=== PATIENT | female | born 1960 | race Caucasian/White ===

== ENCOUNTER 2020-03-13 15:07 | Outpatient (REF) | payer BC, SELFPAY ==
[2020-03-13 19:26] LABS: Abs Immature Grans 0.01 10^3/uL (0.0-0.06); Absolute Basophil Count 0.03 10^3/uL (0.0-0.2); Absolute Eosinophil Count 0.06 10^3/uL (0.0-0.7); Absolute Lymphocyte Count 1.55 10^3/uL (1.2-3.4); Absolute Monocyte Count 0.48 10^3/uL (0.1-0.8); Basophils % 0.6; Eosinophils % 1.2; HCT 43.7 % (36.0-46.0); HGB 14.4 g/dL (11.2-15.7); Immature Grans % 0.2; Lymphocytes % 32.1; MCH 30.4 pg (27.0-33.0); MCV 92.4 fL (80-95); Monocytes % 9.9; Nucleated RBC 0 %; Platelet Count 290 10^3/uL (130-400); RBC 4.73 10^6/uL (3.93-5.22); RDW 12.3 % (11.7-14.6); RDW-SD 41.9 fL; WBC 4.83 10^3/uL (4.4-10.8)
[2020-03-13 20:20] LABS: ALT 41 U/L (14-59); AST 21 U/L (15-37); Albumin 4.1 g/dL (3.4-5.0); Alkaline Phosphatase 88 U/L (46-116); Anion Gap 6.6 mmol/L (3-11); BUN 13 mg/dL (7-18); Bilirubin, Total 0.3 mg/dL (0.2-1.0); CO2 28.4 mmol/L (21.0-32.0); CREATININE 0.72 mg/dL (0.55-1.02); Calcium 8.9 mg/dL (8.5-10.1); Chloride 104 mmol/L (98-107); Glucose 95 mg/dL (74-106); LDL CHOLESTEROL 142 mg/dL (<100); Sodium 139 mmol/L (136-145); TSH (W/Ref FT4) 0.65 uIU/mL (0.36-3.74); Total Protein 7.4 g/dL (6.4-8.2)
== END 2020-03-13 15:27 ==
LOC: NCHCN 15:07
PROVIDERS: PCP Physician Assistant; Visit Provider Physician Assistant
DX: I10 Essential (primary) hypertension (principal)
CPT/HCPCS: 80053; 83721; 84443; 85025

== ENCOUNTER 2020-04-13 16:10 | Outpatient (REF) | payer BC, SELFPAY ==
[2020-04-13 19:05] LABS: Anion Gap 4.4 mmol/L (3-11); BUN 13 mg/dL (7-18); CO2 30.6 mmol/L (21.0-32.0); CREATININE 0.7 mg/dL (0.55-1.02); Calcium 9.3 mg/dL (8.5-10.1); Chloride 104 mmol/L (98-107); Glucose 86 mg/dL (74-106); Potassium 4.2 mmol/L (3.5-5.1); Sodium 139 mmol/L (136-145)
== END 2020-04-13 16:11 | disposition home or self-care (01) ==
LOC: NCHCN 16:10
PROVIDERS: PCP Physician Assistant; Visit Provider Physician Assistant
DX: I10 Essential (primary) hypertension (principal)
CPT/HCPCS: 80048

== ENCOUNTER 2020-08-24 10:28 | Outpatient (CLI) | payer BC, SELFPAY ==
--- NOTE | 2020-08-24 10:15 | RT.EKG_ITS ---
APPROVED REPORT Exam: Resting ECG Reason for Exam: Back pain Patient Location: O HR:109 bpm ECG Measurements Heart Rate 109 AXIS AZ 160 P 63 QRSd 93 QRS -50 QT 348 T 66 QTc 470 Conclusion Sinus tachycardia...rate> 99 Left atrial enlargement...P, P'>60mS, <-0.15mV V1 Probable left ventricular hypertrophy...multiple LVH criteria
== END 2020-08-24 10:29 | disposition home or self-care (01) ==
LOC: DI.CM 10:28
PROVIDERS: PCP Physician Assistant; Visit Provider Nurse Practitioner Family
DX: M54.9 Dorsalgia, unspecified (principal); R00.0 Tachycardia, unspecified; I51.7 Cardiomegaly
CPT/HCPCS: 93010

== ENCOUNTER 2020-08-24 10:53 | Emergency (ER) | payer BC, SELFPAY ==
--- NOTE | 2020-08-24 10:45 | RT.EKG_ITS ---
APPROVED REPORT Exam: Resting ECG Reason for Exam: chest pain Patient Location: E HR:123 bpm ECG Measurements Heart Rate 123 AXIS VT 141 P 76 QRSd 90 QRS -37 QT 322 T 47 QTc 461 Conclusion Sinus tachycardia...rate> 99 Left ventricular hypertrophy...multiple LVH criteria Anterior infarct, old...Q >40mS, abnormal ST-T, V2-V5
--- NOTE | 2020-08-24 11:00 | DI.CT_ITS ---
Exam(s) CT THORAX ABD/PEL CTA EXAM: CT THORAX ABD/PEL CTA CLINICAL HISTORY: chest pain, radiating to back. TECHNIQUE: Imaging Protocol: Axial CT angiography was performed with multi-slice acquisition and m ulti-planar and/or 3D reconstructions. CONTRAST MATERIAL: Intravenous: Omnipaque 350 Contrast volume:100 ml Oral: yes / no COMPARISON: No exams were available for comparison FINDINGS: CHEST: Pulmonary Arteries: No evidence of filling defect to suggest pulmonary emboli. Tracheobronchial tree: Patent where visualized. Mediastinum and Justyna: No dominant adenopathy or fluid collection. Pulmonary parenchyma: 1.1 centimeter circumscribed peripheral nodule right upper lobe, likely benign hamartoma. No consolidation. No architectural distortion. Pleura: No effusion or pneumothorax. Heart: The heart is not dilated. No coronary artery calcifications are seen. Aorta: Thoracic aorta : Ascending 3.5 cm. Descending tortuous. No significant atherosclerotic estes es or evidence of dissection. Aberrant right subclavian artery. Normal diameter vertebral arteries and common carotid arteries as well as subclavian arteries without significant atherosclerotic change or stenosis. Bones: Mild degenerative changes in the spine. ABDOMEN AND PELVIS: Abdomen: Celiac axis/mesenteric arteries: No evidence of occlusion or significant stenosis. Renal Arteries: No evidence of occlusion or significant stenosis. There is a single renal artery per fusing each kidney. Aorta: Mild atherosclerotic changes. No evidence of occlusion or significant stenosis. No aneurysm or dissection. Pelvis: Iliac Arteries: No evidence of occlusion or significant stenosis. Common Femoral Arteries: No evidence of occlusion or significant stenosis. ABDOMEN: Liver: Normal density. No measurable mass. Portal, Superior Mesenteric, and Splenic Veins: Unremarkable. Gallbladder and Biliary Tract: Small Phrygian cap. No radiodense calculus or biliary dilation. Pancreas: Normal density, no abnormal calcifications or inflammatory process. Spleen: Normal. Adrenals: No masses seen. Kidneys: Normal size, contour and axis. No radiodense stones or obstructive uropathy. No masses seen. Bowel: Diverticulosis. No evidence of diverticulitis. No obstruction or bowel wall thickening. Appe ndix is unremarkable. Peritoneal Cavity: No ascites, collection or mesenteric inflammatory response. Lymph Nodes: Within normal limits. Bones: Unremarkable. Soft Tissues: Unremarkable. PELVIS: Bladder: Symmetric distention, no gross wall thickening. Reproductive Organs: Unremarkable as visualized. Lymph Nodes: Within normal limits. Bones: Within normal limits. IMPRESSION: Mild atherosclerotic changes of the abdominal aorta. Ectatic ascending thoracic aorta at 3.5 cm. Ab errant right subclavian artery. No evidence of significant stenosis or dissection. 1.1 centimeter, smoothly marginated right upper lobe mass has a benign appearance. Comparison with p rior exams is recommended. If none are available, PET-CT or three-month follow-up chest CT is recomm ended. RADIATION DOSE DELIVERED: 820.54mGy.cm Total DLP DATA REPOSITORY: All CT scans at this facility are submitted to the National Radiology Data Registry (NRDR) Dose Index Registry (DIR) with the [employer] (A[employer]). RADIATION OPTIMIZATION: All CT scans at this facility use at least one of these dose optimization te chniques: automated exposure control; mA and/or kV adjustment per patient size (includes targeted exa ms where dose is matched to clinical indication); or iterative reconstruction.
[2020-08-24 11:02] VITALS: BP 154/100; PULSE 138; RESP 22; TEMP 36.7; O2SAT 98
--- NOTE | 2020-08-24 11:14 | W.ED.GENAD ---
Discharge Plan Disposition Patient Disposition: HOME Condition: Stable Discharge Details Clinical Impression: Back pain, Back muscle spasm, Incidental pulmonary nodule Primary Care Provider: Michelle Vang ED Provider: Jose Dyer Home Meds and New Rx's Prescriptions: Continued amlodipine 5 mg tablet 5 mg PO DAILY RF: 0 losartan 100 mg tablet 100 mg PO DAILY RF: 0 Discharge Instructions Instructions: Diazepam (By mouth), Muscle Spasm (ED), Back Pain (ED) Additional Instructions: Please take Valium 2 mg tablet by mouth once daily as needed for severe muscle spasm. Please take ibuprofen over the counter. Take 600mg by mouth every 6 hours as needed for pain. Please take acetaminophen (tylenol) - 650mg every 6 hours by mouth as needed for pain. Use lidocaine patches. Dose according to label. Please contact your primary care physician to arrange follow-up. Please be sure to review results of your CT with your primary care physician. There were incidentally noted findings including a right upper lobe lung nodule that should be followed up. Return to the ER for any worsening or new concerning symptoms. Referrals: Michelle Vang [Primary Care Provider] - Discharge Data Discharge Date/Time-TO BE ENTERED AT DEPARTURE: 08/24/20 12:43 Medical Decision Making 1115??60-year-old female with history of hypertension and prior thoracic disc bulge seen immediately on arrival after being sent from [facility] with right thoracic back pain radiating to chest present over the past 3 days but worse this morning. Patient is hypertensive and tachycardic. She is saturating well in no respiratory distress. She is quite uncomfortable. Screening ECG was reviewed and interpreted by me: Sinus tachycardia 123 bpm, biatrial enlargement, LVH. Consider ACS. Will check check troponin. Consider acute aortic dissection. Plan to obtain CTA of the chest abdomen pelvis. Dilaudid 1 mg IV for pain. 1220 --labs reviewed and nondiagnostic. CTA of the chest, abdomen pelvis was interpreted by radiology: Ectatic aorta with no dissection or aneurysm, incidentally noted diverticulosis and 1 cm right upper lobe pulmonary nodule. Results discussed with the patient. Patient reassessed and pain much improved. Will place lidocaine patch and provide Valium for home use. Patient was encouraged to continue ibuprofen and Tylenol. She was encouraged to follow-up with her primary care physician. Patient now noting that she has chronic almost daily back pain and would like referral to a back specialist. Disposition decision was made weighing the risks and benefits of hospitalization versus outpatient treatment, the risk for further decompensation, and the patient's wishes. The patient was stable and requested discharge. Prior to discharge, my usual and customary return precautions were reviewed with the patient - this included follow-up instructions and reason to return to the emergency department if condition worsens, does not improve as expected, or other new concerns arise. Lab Data Lab results reviewed: Yes I reviewed the patient's lab results. Labs: Laboratory Tests Range/Units 08/24/20 08/24/20 11:16 11:16 WBC (4.4-10.8) 10^3/uL 4.53 RBC (3.93-5.22) 10^6/uL 5.40 H Hgb (11.2-15.7) g/dL 16.4 H Hct (36.0-46.0) % 47.8 H MCV (80-95) fL 88.5 MCH (27.0-33.0) pg 30.4 MCHC (32.0-36.0) % 34.3 RDW (11.7-14.6) % 11.8 Plt Count (130-400) 10^3/uL 341 MPV (8.0-11.0) fL 9.3 Immature Gran % 0.2 Neutrophils % 47.2 Lymphocytes % 38.0 Monocytes % 12.4 Eosinophils % 1.5 Basophils % 0.7 Nucleated RBC % % 0 Absolute Neutrophils (1.2-6.7) 10^3/uL 2.14 Absolute Lymphocytes (1.2-3.4) 10^3/uL 1.72 Absolute Monocytes (0.1-0.8) 10^3/uL 0.56 Absolute Eosinophils (0.0-0.7) 10^3/uL 0.07 Absolute Basophils (0.0-0.2) 10^3/uL 0.03 Sodium (136-145) mmol/L 139 Potassium (3.5-5.1) mmol/L 3.9 Chloride (98-107) mmol/L 100 Carbon Dioxide (21.0-32.0) mmol/L 23.5 Anion Gap (3-11) mmol/L 15.5 H BUN (7-18) mg/dL 11 Creatinine (0.55-1.02) mg/dL 0.9 Estimated GFR/1.73 m2 (mL/min/1.73m2) >= 60.00 Glucose (74-106) mg/dL 118 H Calcium (8.5-10.1) mg/dL 9.9 Magnesium (1.8-2.4) mg/dL 2.0 Total Bilirubin (0.2-1.0) mg/dL 0.6 AST (15-37) U/L 25 ALT (14-59) U/L 53 Alkaline Phosphatase (46-116) U/L 115 Troponin I (<0.06) ng/mL < 0.05 Total Protein (6.4-8.2) g/dL 8.9 H Albumin (3.4-5.0) g/dL 4.7 HPI General Mode of arrival: ambulatory. Date/Time Provider Initiated Documentation: 08/24/20 10:59. Limitations to Documentation: no limitations. Information obtained by: patient. HPI Narrative: 60-year-old female with history of hypertension and thoracic disc bulge in the past, presents with chief complaint of back pain. Patient was seen at [facility] and sent to the ED for further evaluation. Patient notes that she has had 3 days of mild pain in right upper back rating to substernal chest. This morning was walking her dog this morning and the dog pulled a leash and she developed worsening severe pain in her back. Pain radiates laterally around her right chest to her anterior chest. Denies associated shortness of breath or difficulty breathing. Patient did take Tylenol without relief. Related Data Home Medications Medication Instructions Recorded Confirmed amlodipine 5 mg PO DAILY 08/24/20 08/24/20 losartan 100 mg PO DAILY 08/24/20 08/24/20 Allergies Allergy/AdvReac Type Severity Reaction Status Date / Time No Known Allergies Allergy Verified 08/24/20 11:05 General Stated Complaint: Nk/Back Pain NILSON: 2 Review of Systems All systems reviewed & are unremarkable except as noted in HPI and below Constitutional Constitutional: Denies fever(s) Cardiovascular Cardiovascular: Reports as per HPI [facility] Medical History (Updated 08/24/20 @ 12:29 by Jose Dyer MD) HTN (hypertension) Social History Smoking/Tobacco Use Status: Never Smoking risk assessment performed?: Yes Alcohol Intake: current Alcohol Intake frequency: a few times a week Drug use: Never Substance use type: does not use Do you feel safe at home: Yes Do you feel safe in your relationship?: Yes Exam Const General: cooperative, in distress and not diaphoretic Orientation: alert and awake [facility] Mouth: moist mucous membranes Eyes Conjunctivae: normal conjunctivae Sclera: normal sclerae Neck Neck: trachea midline and supple Resp Auscultation: clear to auscultation bilaterally, no rales, no rhonchi and no wheezes Cardio Rate: tachycardic Rhythm: regular rhythm Heart Sounds: no murmurs Pulses: radial pulses present bilaterally 2+ GI Palpation: soft, not firm, no guarding, no masses, not rigid and nontender Skin General skin exam: no rashes or lesions noted Neuro General: patient alert, patient awake, patient oriented x3 and tone normal Extrem General: no edema Psych Appearance: grossly normal Mental Status: mental status grossly normal Course Vital Signs Vital signs: Vital Signs Temperature 36.7 C 08/24/20 11:02 Pulse 138 H 08/24/20 11:02 Respiratory Rate 22 08/24/20 11:02 Blood Pressure 154/100 H 08/24/20 11:02 Pulse Oximetry 98 08/24/20 11:02 Temperature 36.7 C 08/24/20 11:02 Temperature Source Skin 08/24/20 11:02 Pulse 138 H 08/24/20 11:02 Respiratory Rate 22 08/24/20 11:02 Respiratory Effort Non-Labored 08/24/20 11:07 Blood Pressure 154/100 H 08/24/20 11:02 Blood Pressure Position Standing 08/24/20 11:02 Pulse Oximetry 98 08/24/20 11:02 Oxygen Delivery Method Room Air 08/24/20 11:02 Oxygen Flow Rate 0 08/24/20 11:02 Pain Level 10 08/24/20 11:07
[2020-08-24 11:17] VITALS: BP 152/101; PULSE 128; O2SAT 100
[2020-08-24 11:18] VITALS: O2SAT 100
[2020-08-24] MEDS: HYDROmorphone 2 MG/ML VIAL 1 MG IVP (11:18)
[2020-08-24 11:20] VITALS: O2SAT 100
[2020-08-24 11:25] LABS: Abs Immature Grans 0.01 10^3/uL (0.0-0.06); Absolute Basophil Count 0.03 10^3/uL (0.0-0.2); Absolute Eosinophil Count 0.07 10^3/uL (0.0-0.7); Absolute Lymphocyte Count 1.72 10^3/uL (1.2-3.4); Absolute Monocyte Count 0.56 10^3/uL (0.1-0.8); Absolute Neutrophil Count 2.14 10^3/uL (1.2-6.7); Basophils % 0.7; Eosinophils % 1.5; HCT 47.8 % (36.0-46.0); HGB 16.4 g/dL (11.2-15.7); Immature Grans % 0.2; MCH 30.4 pg (27.0-33.0); MCHC 34.3 % (32.0-36.0); MCV 88.5 fL (80-95); MPV 9.3 fL (8.0-11.0); Monocytes % 12.4; Neutrophils % 47.2; Nucleated RBC 0 %; Platelet Count 341 10^3/uL (130-400); RDW 11.8 % (11.7-14.6); RDW-SD 37.8 fL; WBC 4.53 10^3/uL (4.4-10.8)
[2020-08-24 11:46] LABS: ALT 53 U/L (14-59); AST 25 U/L (15-37); Albumin 4.7 g/dL (3.4-5.0); Alkaline Phosphatase 115 U/L (46-116); Anion Gap 15.5 mmol/L (3-11); BUN 11 mg/dL (7-18); Bilirubin, Total 0.6 mg/dL (0.2-1.0); CO2 23.5 mmol/L (21.0-32.0); CREATININE 0.9 mg/dL (0.55-1.02); Calcium 9.9 mg/dL (8.5-10.1); Chloride 100 mmol/L (98-107); Glucose 118 mg/dL (74-106); Potassium 3.9 mmol/L (3.5-5.1); Sodium 139 mmol/L (136-145); Total Protein 8.9 g/dL (6.4-8.2)
[2020-08-24 11:49] LABS: Troponin I < 0.05 ng/mL (<0.06)
[2020-08-24] MEDS: Omnipaque 350 MG/ML 100 ML BTL IJ (11:49)
[2020-08-24 12:36] VITALS: BP 109/79; PULSE 92; TEMP 36.6; O2SAT 100
[2020-08-24] MEDS: Lidocaine 5% Patch 1 PATCH TP (12:38)
[2020-08-24] MEDS: diazePAM 2 MG TAB 6 MG PO (12:39)
== END 2020-08-24 12:43 | disposition home or self-care (01) ==
PROVIDERS: Emergency Provider Student in an Organized Health Care Education/Training Program; PCP Physician Assistant
DX: M62.830 Muscle spasm of back (principal); M54.6 Pain in thoracic spine; R91.1 Solitary pulmonary nodule
CPT/HCPCS: 36415; 74177; 80053; 93005; 96374; 99285; 83735; 84484; 85025; 93010; J3490

== ENCOUNTER 2020-11-01 14:38 | Outpatient (REF) | payer BC, SELFPAY ==
[2020-11-03 17:19] LABS: COVID-19 RT-PCR UVMMC Result Positive (Negative)
== END 2020-11-01 14:39 | disposition home or self-care (01) ==
LOC: NCHCN 14:38
PROVIDERS: PCP Physician Assistant; Referring Provider Physician Assistant; Visit Provider Physician Assistant
DX: Z20.822 Contact with and (suspected) exposure to COVID-19 (principal)
CPT/HCPCS: U0003